=== PATIENT | female | born 1980 | race Caucasian/White ===

== ENCOUNTER 2016-05-06 18:38 | Emergency (ER) | payer OTHER ==
[2016-05-06 19:49] LABS: ABSOLUTE NEUTROPHIL COUNT 7.6 K/mm3 (1.8-7.7); BASO % 0.4 % (0.2-1.0); EOS # 0.1 (0.0-0.5); EOS % 1.3 % (0.9-2.9); HEMATOCRIT 46.1 % (37.0-47.0); HEMOGLOBIN 15.3 gm/l (12.0-16.0); IMM NEUT% 0.4 % (0-1); LYMPH # 2.2 (1.0-4.8); LYMPH % 20.5 % (15-45); MEAN CELL VOLUME 94.1 fl (81.0-99.0); MEAN CORPUSCULAR HEMOGLOBIN 31.2 pg (27.0-31.0); MEAN CORPUSCULAR HGB CONC 33.2 g/dl (33.0-37.0); MEAN PLATELET VOLUME 10.7 fl (7.4-10.4); MONO # 0.8 (0.0-0.8); MONO % 7.2 % (4-12); NEUT % 70.2 % (43-75); PLATELET COUNT 283 K/mm3 (130-400); RED CELL DISTRIBUTION WIDTH 12.4 % (11.5-14.5)
[2016-05-06 19:57] LABS: URINE BILIRUBIN NEGATIVE (NEGATIVE); URINE BLOOD TRACE (NEGATIVE); URINE GLUCOSE (UA) NEGATIVE (NEGATIVE); URINE LEUKOCYTE ESTERASE NEGATIVE (NEGATIVE); URINE NITRITE NEGATIVE (NEGATIVE); URINE PROTEIN 1+ (NEGATIVE)
[2016-05-06 20:05] LABS: HCG,QUALITATIVE URINE NEGATIVE
[2016-05-06 20:33] LABS: ALB/GLOB RATIO 1.3 (>1.0); ALBUMIN 4.3 gm/dL (3.5-5.7); CALCIUM 9.9 mg/dL (8.6-10.3)
[2016-05-06 20:58] LABS: URINE APPEARANCE SL CLOUDY; URINE COLOR DARK YELLOW; URINE UROBILINOGEN 4 mg/dL (0-1 mg/dl)
[2016-05-06 20:59] LABS: URINE RBC 0-2 /hpf
[2016-05-06 21:00] LABS: URINE EPITHELIAL CELLS 0-2 /hpf
[2016-05-06 21:01] LABS: URINE AMORPHOUS SEDIMENT FEW; URINE BACTERIA 2+; URINE CRYSTALS FEW /hpf
== END 2016-05-06 21:08 | disposition home or self-care (01) ==
LOC: ED 18:38
DX: R55 Syncope and collapse (principal); F31.9 Bipolar disorder, unspecified; Z72.0 Tobacco use